=== PATIENT | male | born 1970 | race Caucasian/White ===

== ENCOUNTER 2022-10-09 08:37 | Outpatient (CLI) | payer OTHER, SELFPAY ==
[2022-10-09 14:11] LABS: Chloride* 105 mmol/L (96-114); Sodium* 136 mmol/L (135-149)
[2022-10-09 14:14] LABS: Alanine Aminotransferase* 39 U/L (4-50); Blood Urea Nitrogen* 18 mg/dL (7-30); Carbon Dioxide* 24 mmol/L (20-32); Cholesterol* 157 mg/dL (90-199); Creatinine* 0.7 mg/dL (0.5-1.5); Estimated Glomerular Filt Rate 110 ml/min; Glucose* 107 mg/dL (60-115)
[2022-10-09 14:15] LABS: Calcium* 9.1 mg/dL (8.4-10.6); HDL Cholesterol* 42 mg/dL (>=40); LDL Cholesterol Calculated 70 mg/dL (<100); Triglycerides* 225 mg/dL (40-149)
== END 2022-10-09 08:38 | disposition home or self-care (01) ==
PROVIDERS: PCP Family Medicine; Visit Provider Family Medicine
DX: E78.5 Hyperlipidemia, unspecified (principal); I10 Essential (primary) hypertension
CPT/HCPCS: 80048; 80061; 84460

== ENCOUNTER 2023-09-05 08:45 | Outpatient (CLI) | payer OTHER, SELFPAY | END 2023-09-05 08:46 | disposition home or self-care (01) | PROVIDERS: PCP Family Medicine; Visit Provider Family Medicine | DX: E78.2 Mixed hyperlipidemia (principal); I10 Essential (primary) hypertension; Z12.5 Encounter for screening for malignant neoplasm of prostate | CPT/HCPCS: 80048; 80061; 84153; 84460 ==

== ENCOUNTER 2024-05-08 10:32 | Outpatient (CLI) | payer OTHER, SELFPAY | END 2024-05-08 10:33 | disposition home or self-care (01) | PROVIDERS: PCP Family Medicine; Visit Provider Family Medicine | DX: I25.10 Atherosclerotic heart disease of native coronary artery without angina pectoris (principal); E78.2 Mixed hyperlipidemia; I10 Essential (primary) hypertension; F41.9 Anxiety disorder, unspecified | CPT/HCPCS: 80048; 80061; 84484 ==

== ENCOUNTER 2024-05-19 14:00 | Outpatient (CLI) | payer OTHER, SELFPAY | END 2024-05-19 14:01 | disposition home or self-care (01) | LOC: FBOREF 14:01 | PROVIDERS: PCP Family Medicine; Visit Provider Family Medicine | DX: I10 Essential (primary) hypertension (principal) | CPT/HCPCS: 80048 ==

== ENCOUNTER 2024-08-07 13:00 | Outpatient (CLI) | payer OTHER, SELFPAY | END 2024-08-07 13:01 | disposition home or self-care (01) | PROVIDERS: PCP Family Medicine; Visit Provider Family Medicine | DX: M10.9 Gout, unspecified (principal) | CPT/HCPCS: 84550 ==

== ENCOUNTER 2024-08-17 14:03 | Outpatient (CLI) | payer OTHER, SELFPAY | END 2024-08-17 14:04 | disposition home or self-care (01) | PROVIDERS: PCP Family Medicine; Visit Provider Family Medicine | DX: E78.2 Mixed hyperlipidemia (principal) | CPT/HCPCS: 80061; 80076; 84460 ==

== ENCOUNTER 2024-10-05 07:52 | Outpatient (CLI) | payer OTHER, SELFPAY | END 2024-10-05 07:53 | disposition home or self-care (01) | LOC: NFLDREF 10-06 11:51 | PROVIDERS: PCP Family Medicine; Referring Provider Family Medicine; Visit Provider Family Medicine | DX: R74.8 Abnormal levels of other serum enzymes (principal) | CPT/HCPCS: 80076 ==

== ENCOUNTER 2025-03-12 08:57 | Outpatient (CLI) | payer OTHER, SELFPAY | END 2025-03-12 08:58 | disposition home or self-care (01) | PROVIDERS: PCP Family Medicine; Visit Provider Family Medicine | DX: E78.2 Mixed hyperlipidemia (principal); R74.8 Abnormal levels of other serum enzymes; M10.032 Idiopathic gout, left wrist; I10 Essential (primary) hypertension; Z12.5 Encounter for screening for malignant neoplasm of prostate | CPT/HCPCS: 80048; 80061; 80076; 84550; G0103 ==